=== PATIENT | male | born 1945 | race Two or more races ===

== ENCOUNTER 2019-03-08 23:57 | Emergency (ER) | payer OTHER ==
[~2019-03-08] VITALS: Ht 170.2 cm; Wt 65.3 kg
[~2019-03-08 23:57] MED LIST: PROPECIA1 MG PO
== END 2019-03-09 02:23 | disposition home or self-care (01) ==
LOC: ER 23:57
DX: H57.89 Other specified disorders of eye and adnexa (principal); T15.82XA Foreign body in other and multiple parts of external eye, left eye, initial encounter; X58.XXXA Exposure to other specified factors, initial encounter; Y93.89 Activity, other specified; Y92.832 Beach as the place of occurrence of the external cause; Y99.8 Other external cause status

== ENCOUNTER 2021-11-24 11:52 | Emergency (ER) | payer OTHER ==
[~2021-11-24] VITALS: Ht 170.2 cm; Wt 62.1 kg
[2021-11-24] MEDS ORDERED: TAMS0.4C PO (12:12)
== END 2021-11-24 15:22 | disposition home or self-care (01) ==
LOC: ER 11:52
DX: N39.0 Urinary tract infection, site not specified (principal); R50.9 Fever, unspecified; R53.81 Other malaise

== ENCOUNTER → 2023-09-13 | Emergency (ER) | payer OTHER ==
[~2023-09-13] VITALS: Ht 170.2 cm; Wt 60.8 kg
[~2023-09-13] MED LIST changes: +ANALPRAM HC 2.530 GM RECTAL; +PRAVASTATIN SOD10 MG PO; +TAMS0.4C PO; +VITAMEDMD REDI1.4 MG PO
== END | disposition home or self-care (01) ==
LOC: ER 10:24
DX: K64.8 Other hemorrhoids (principal)